=== PATIENT | male | born 1930 | race Caucasian/White ===

== ENCOUNTER 2017-01-26 16:33 | Emergency (ER) | payer OTHER ==
[~2017-01-26] VITALS: Ht 172.7 cm; Wt 77.1 kg
[~2017-01-26 16:33] MED LIST: LIP20 PO
[2017-01-26 16:51] VITALS: BP_SYST 133
--- NOTE | 2017-01-26 18:00 | NUR ---
Patient to ED bed 1, to await MD evaluation.
--- NOTE | 2017-01-26 18:00 | NUR ---
Patient to ED via triage with c/o left ear bleeding after inserting a Q-tip into his left ear. Patient denies any other known trauma or injury. Patient was able to ambulate to bed 1 with slow, steady gait. No c/o pain/sob upon exertion-patient without any other complaint at this time. Patient sitting quietly on gurney, awaiting evaluation by ER MD-will continue to observe and assess.
--- NOTE | 2017-01-26 18:15 | NUR ---
Dr Kelsey at bedside to evaluate patient.
[2017-01-26 18:45] VITALS: BP_SYST 130
--- NOTE | 2017-01-26 18:45 | NUR ---
Patient given written and verbal discharge instructions and verbalizes understanding. ER MD discussed with patient the results and treatment provided. Patient in stable condition. ID arm band removed. No RX given. Patient educated on pain management and to follow up with PMD. Pain Scale 0. Opportunity for questions provided and answered.
== END 2017-01-26 18:45 | disposition home or self-care (01) ==
LOC: SED 16:33
DX: H92.22 Otorrhagia, left ear (principal); E11.9 Type 2 diabetes mellitus without complications; Z86.79 Personal history of other diseases of the circulatory system; Z90.49 Acquired absence of other specified parts of digestive tract; Z95.1 Presence of aortocoronary bypass graft
CPT/HCPCS: 99282

== ENCOUNTER 2018-03-19 15:38 | Inpatient (IN) | payer OTHER ==
[~2018-03-19] VITALS: Ht 172.7 cm; Wt 89.4 kg
[2018-03-19 15:41] VITALS: BP_SYST 117
[2018-03-19] MEDS ORDERED: NACL 0.9% 1,000 ML IV ONE (15:46)
[2018-03-19] MEDS ORDERED: ONDANSETRON HCL 4 MG/2 ML VIAL IVP ONE (16:00)
[2018-03-19] MEDS ORDERED: ONDANSETRON HCL 4 MG/5 ML UDC PO ONE (16:00)
[2018-03-19] MEDS ORDERED: MORPHINE 4 MG/ML INJ. SYRINGE IVP ONE (16:00)
[2018-03-19 16:34] LABS: ANION GAP 15 (5-15); CALCIUM 9.7 mg/dL (8.4-11.0); CHLORIDE 101 mmol/L (98-107); CREATININE 2.15 mg/dL (0.55-1.30); GLUCOSE 98 mg/dL (70-99); POTASSIUM 4.5 mmol/L (3.5-5.1); SODIUM SERUM 135 mmol/L (136-145); UREA NITROGEN, BLOOD 38 mg/dL (8-21)
[2018-03-19 16:38] LABS: ALANINE AMINOTRANSFERASE 63 U/L (12-78); ALBUMIN 3.4 g/dL (3.4-4.8); ASPARTATE AMINOTRANSFERASE 106 U/L (10-37)
[2018-03-19 16:43] LABS: TOTAL BILIRUBIN 5.2 mg/dL (0.0-1.0)
[2018-03-19 16:45] LABS: BASOPHILS % (AUTO) 0.8 % (0.0-2.0); EOSINOPHILS % (AUTO) 0.1 % (0.0-4.0); HEMATOCRIT 51.1 % (36-54); HEMOGLOBIN 16.8 g/dL (14.0-18.0); LYMPHOCYTES % (AUTO) 11.4 % (20.5-51.5); MEAN CORPUSCULAR HEMOGLOBIN 29 pg (27-31); MEAN CORPUSCULAR HGB CONC 33 % (32-36); MEAN CORPUSCULAR VOLUME 89 fL (79.0-98.0); NEUTROPHILS % (AUTO) 79.7 % (40.0-70.0); PLATELET COUNT (AUTO) 170 K/uL (130-430); RED BLOOD CELL COUNT(AUTO) 5.72 MIL/uL (4.2-6.2); RED CELL DISTRIBUTION WIDTH 15.5 % (9.0-15.0)
[2018-03-19 16:49] LABS: LYMPHOCYTES # (AUTO) 0.9 K/uL (1.0-5.5); MONOCYTES # (AUTO) 0.6 K/uL (0.0-1.0); NEUTROPHILS # (AUTO) 6.3 K/uL (1.8-7.7)
[2018-03-19] MEDS ORDERED: ASPI-1155 PO (17:01)
[2018-03-19] MEDS ORDERED: LOSA100T3 PO (17:01)
[2018-03-19] MEDS ORDERED: APIX2.5T PO (17:01)
[2018-03-19] MEDS ORDERED: METO25TA3 PO (17:01)
[2018-03-19 17:56] VITALS: BP_SYST 130
[2018-03-19 20:00] VITALS: BP_SYST 119
[2018-03-19 22:30] VITALS: BP_SYST 98
[2018-03-20] MEDS ORDERED: ONDANSETRON HCL 4 MG/2 ML VIAL IVP PRN (00:15)
[2018-03-20] MEDS ORDERED: ACETAMINOPHEN 325 MG TABLET PO PRN ×2 (00:15→09:15)
[2018-03-20] MEDS ORDERED: ALBUTEROL SULFATE 0.083% 2.5 MG/3 ML VIAL.NEB INH PRN (00:15)
[2018-03-20 02:22] VITALS: BP_SYST 98
[2018-03-20] MEDS ORDERED: NACL 0.9% 1,000 ML IV SCH (05:45)
[2018-03-20 06:56] LABS: BASOPHILS # (AUTO) 0.1 K/uL (0.0-0.2); BASOPHILS % (AUTO) 0.6 % (0.0-2.0); EOSINOPHILS % (AUTO) 0.1 % (0.0-4.0); HEMATOCRIT 50.2 % (36-54); HEMOGLOBIN 16.3 g/dL (14.0-18.0); LYMPHOCYTES # (AUTO) 0.9 K/uL (1.0-5.5); LYMPHOCYTES % (AUTO) 7.8 % (20.5-51.5); MEAN CORPUSCULAR HEMOGLOBIN 29 pg (27-31); MEAN CORPUSCULAR HGB CONC 33 % (32-36); MEAN CORPUSCULAR VOLUME 90 fL (79.0-98.0); MONOCYTES # (AUTO) 1.1 K/uL (0.0-1.0); MONOCYTES % (AUTO) 9.8 % (1.7-9.3); PLATELET COUNT (AUTO) 166 K/uL (130-430); RED BLOOD CELL COUNT(AUTO) 5.58 MIL/uL (4.2-6.2); RED CELL DISTRIBUTION WIDTH 15.9 % (9.0-15.0); WHITE BLOOD COUNT (AUTO) 11.1 K/uL (4.8-10.8)
[2018-03-20 07:26] LABS: ALANINE AMINOTRANSFERASE 284 U/L (12-78); ALBUMIN 2.7 g/dL (3.4-4.8); ANION GAP 16 (5-15); CALCIUM 9.2 mg/dL (8.4-11.0); CHLORIDE 105 mmol/L (98-107); CREATININE 2.77 mg/dL (0.55-1.30); GLUCOSE 55 mg/dL (70-99); POTASSIUM 5.5 mmol/L (3.5-5.1); SODIUM SERUM 138 mmol/L (136-145); UREA NITROGEN, BLOOD 46 mg/dL (8-21)
[2018-03-20 07:44] LABS: ASPARTATE AMINOTRANSFERASE 725 U/L (10-37)
[2018-03-20 07:53] LABS: TOTAL BILIRUBIN 5.4 mg/dL (0.0-1.0)
[2018-03-20 08:00] VITALS: BP_SYST 106
[2018-03-20 08:39] LABS: INR 2.6 (0.80-1.20); PROTHROMBIN TIME 25.2 SECS (9.5-12.5)
[2018-03-20] MEDS: METOPROLOL SUCCINATE 25 MG TAB.SR.24H (TOPROL XL) PO SCH (08:54)
[2018-03-20] MEDS ORDERED: ATORVASTATIN 20 MG TABLET PO SCH (09:00)
[2018-03-20] MEDS ORDERED: PHYTONADIONE 5 MG TABLET PO ONE (09:15)
[2018-03-20] MEDS ORDERED: SODIUM POLYSTYRENE SULFONATE 15 GM/60 ML UDBTL PO ONE (09:15)
[2018-03-20] MEDS: NACL 0.9% 1,000 ML IV SCH ×2 (09:15→10:06)
[2018-03-20] MEDS ORDERED: IPRATROPIUM/ALBUTEROL SULFATE 3 ML AMPUL.NEB (DUONEB) INH PRN (09:15)
[2018-03-20] MEDS: cefTRIAXone 1 GM in D5W 50 ML IV SCH (10:17)
[2018-03-20 10:40] LABS: NEUTROPHILS % (AUTO) 81.7 % (40.0-70.0)
[2018-03-20 11:03] LABS: BILIRUBIN,URINE 2+ (NEGATIVE); BLOOD, URINE NEGATIVE (NEGATIVE); CLARITY/URINE HAZY (CLEAR); COLOR,URINE AMBER (YELLOW); GLUCOSE,URINE NEGATIVE (NEGATIVE); KETONES,URINE NEGATIVE (NEGATIVE); LEUKOCYTE ESTERASE ,URINE NEGATIVE (NEGATIVE); NITRITE, URINE NEGATIVE (NEGATIVE); PH,URINE 5.5 (5.0-8.0); PROTEIN URINE 2+ (NEGATIVE)
[2018-03-20 11:14] LABS: BACTERIA,URINE MODERATE /HPF (None Seen); MUCUS,URINE 1+ /LPF (None Seen); URINE AMORPHOUS URATE 2+ /HPF (None Seen)
[2018-03-20 12:00] VITALS: BP_SYST 102
[2018-03-20 16:00] VITALS: BP_SYST 100
[2018-03-20] MEDS: D5NS 1,000 ML IV SCH ×2 (17:09→20:15)
[2018-03-20 20:28] VITALS: BP_SYST 110
[2018-03-20] MEDS ORDERED: NYSTATIN 15 GM TOPICAL POWDER TP ONE (21:00)
[2018-03-20] MEDS: NYSTATIN 15 GM TOPICAL POWDER TP SCH (21:10)
[2018-03-21] MEDS: MORPHINE 4 MG/ML INJ. SYRINGE IVP PRN (02:08)
[2018-03-21 03:20] VITALS: BP_SYST 107
[2018-03-21] MEDS: D5NS 1,000 ML IV SCH ×2 (03:40→21:33)
[2018-03-21 07:19] LABS: INR 2.6 (0.80-1.20); PROTHROMBIN TIME 25.2 SECS (9.5-12.5)
[2018-03-21 07:40] LABS: TOTAL IRON BIND. CAPACITY 190 ug/dL (250-450)
[2018-03-21 07:50] LABS: ANION GAP 14 (5-15); CALCIUM 7.6 mg/dL (8.4-11.0); CHLORIDE 110 mmol/L (98-107); CREATININE 3.44 mg/dL (0.55-1.30); GLUCOSE 160 mg/dL (70-99); POTASSIUM 4.7 mmol/L (3.5-5.1); SODIUM SERUM 139 mmol/L (136-145); UREA NITROGEN, BLOOD 65 mg/dL (8-21)
[2018-03-21 07:55] LABS: ALANINE AMINOTRANSFERASE 403 U/L (12-78); ALBUMIN 2.2 g/dL (3.4-4.8); ASPARTATE AMINOTRANSFERASE 627 U/L (10-37); LACTATE DEHYDROGENASE 474 U/L (85-227); TOTAL BILIRUBIN 3.2 mg/dL (0.0-1.0)
[2018-03-21 07:58] LABS: ACETAMINOPHEN < 1 ug/mL (1-30)
[2018-03-21 08:16] VITALS: BP_SYST 113
[2018-03-21 08:17] LABS: BASOPHILS % (AUTO) 0.1 % (0.0-2.0); EOSINOPHILS % (AUTO) 0.1 % (0.0-4.0); HEMATOCRIT 48.3 % (36-54); HEMOGLOBIN 15.6 g/dL (14.0-18.0); LYMPHOCYTES # (AUTO) 0.7 K/uL (1.0-5.5); LYMPHOCYTES % (AUTO) 5.8 % (20.5-51.5); MEAN CORPUSCULAR HEMOGLOBIN 29 pg (27-31); MEAN CORPUSCULAR HGB CONC 32 % (32-36); MEAN CORPUSCULAR VOLUME 91 fL (79.0-98.0); MONOCYTES # (AUTO) 0.8 K/uL (0.0-1.0); MONOCYTES % (AUTO) 6.5 % (1.7-9.3); NEUTROPHILS # (AUTO) 10.2 K/uL (1.8-7.7); NEUTROPHILS % (AUTO) 87.5 % (40.0-70.0); RED BLOOD CELL COUNT(AUTO) 5.32 MIL/uL (4.2-6.2); RED CELL DISTRIBUTION WIDTH 15.8 % (9.0-15.0); WHITE BLOOD COUNT (AUTO) 11.7 K/uL (4.8-10.8)
[2018-03-21] MEDS ORDERED: AZITHROMYCIN 250 MG TABLET PO SCH (09:00)
[2018-03-21 09:32] LABS: PLATELET COUNT (AUTO) 171 K/uL (130-430)
[2018-03-21] MEDS: cefTRIAXone 1 GM in D5W 50 ML IV SCH (09:54)
[2018-03-21] MEDS ORDERED: PHYTONADIONE 5 MG TABLET PO ONE (10:15)
[2018-03-21] MEDS: METOPROLOL SUCCINATE 25 MG TAB.SR.24H (TOPROL XL) PO SCH (10:39)
[2018-03-21] MEDS: NYSTATIN 15 GM TOPICAL POWDER TP SCH ×2 (10:39→21:32)
[2018-03-21] MEDS: PANTOPRAZOLE SODIUM 40 MG TAB PO SCH (10:40)
[2018-03-21 12:00] VITALS: BP_SYST 110
[2018-03-21] MEDS ORDERED: FUROSEMIDE 100 MG in D5W 90 ML IV SCH (14:15)
[2018-03-21 16:00] VITALS: BP_SYST 118
[2018-03-21] MEDS: metroNIDAZOLE 500 mg/NS 100 ML IV SCH ×2 (16:16→21:32)
[2018-03-21 19:50] VITALS: BP_SYST 105
[2018-03-22 00:16] VITALS: BP_SYST 110
[2018-03-22] MEDS: metroNIDAZOLE 500 mg/NS 100 ML IV SCH ×3 (06:40→22:13)
[2018-03-22 07:13] LABS: BASOPHILS # (AUTO) 0.1 K/uL (0.0-0.2); BASOPHILS % (AUTO) 1.1 % (0.0-2.0); HEMATOCRIT 47.6 % (36-54); HEMOGLOBIN 15.6 g/dL (14.0-18.0); LYMPHOCYTES # (AUTO) 0.7 K/uL (1.0-5.5); LYMPHOCYTES % (AUTO) 5.5 % (20.5-51.5); MEAN CORPUSCULAR HEMOGLOBIN 29 pg (27-31); MEAN CORPUSCULAR HGB CONC 33 % (32-36); MEAN CORPUSCULAR VOLUME 90 fL (79.0-98.0); MONOCYTES # (AUTO) 1.1 K/uL (0.0-1.0); MONOCYTES % (AUTO) 9.3 % (1.7-9.3); NEUTROPHILS # (AUTO) 10.1 K/uL (1.8-7.7); PLATELET COUNT (AUTO) 140 K/uL (130-430); RED CELL DISTRIBUTION WIDTH 15.6 % (9.0-15.0)
[2018-03-22 07:32] LABS: PROTHROMBIN TIME 19.4 SECS (9.5-12.5)
[2018-03-22 07:35] LABS: ALBUMIN 2.9 g/dL (3.4-4.8); AMYLASE 160 U/L (0-100); CALCIUM 8.1 mg/dL (8.4-11.0); CHLORIDE 108 mmol/L (98-107); LIPASE 1105 U/L (73-393); POTASSIUM 5.5 mmol/L (3.5-5.1); UREA NITROGEN, BLOOD 77 mg/dL (8-21)
[2018-03-22 07:56] LABS: ANION GAP 13 (5-15); ASPARTATE AMINOTRANSFERASE 630 U/L (10-37); CREATININE 4.22 mg/dL (0.55-1.30); GLUCOSE 110 mg/dL (70-99); SODIUM SERUM 139 mmol/L (136-145); TOTAL BILIRUBIN 3.3 mg/dL (0.0-1.0)
[2018-03-22 07:57] LABS: ALANINE AMINOTRANSFERASE 482 U/L (12-78)
[2018-03-22 08:00] VITALS: BP_SYST 117
[2018-03-22] MEDS: METOPROLOL SUCCINATE 25 MG TAB.SR.24H (TOPROL XL) PO SCH (09:13)
[2018-03-22] MEDS: PANTOPRAZOLE SODIUM 40 MG TAB PO SCH (09:13)
[2018-03-22] MEDS: cefTRIAXone 1 GM in D5W 50 ML IV SCH (09:15)
[2018-03-22] MEDS: NYSTATIN 15 GM TOPICAL POWDER TP SCH ×2 (09:15→22:13)
[2018-03-22 12:08] LABS: NEUTROPHILS % (AUTO) 84.1 % (40.0-70.0)
[2018-03-22 12:37] VITALS: BP_SYST 126
[2018-03-22] MEDS ORDERED: SODIUM POLYSTYRENE SULFONATE 15 GM/60 ML UDBTL PO ONE (14:00)
[2018-03-22 16:02] VITALS: BP_SYST 114
[2018-03-22] MEDS: FUROSEMIDE 100 MG in D5W 90 ML IV SCH (17:11)
[2018-03-22] MEDS: MORPHINE 4 MG/ML INJ. SYRINGE IVP PRN (17:43)
[2018-03-22 19:47] VITALS: BP_SYST 115
[2018-03-22] MEDS: D5NS 1,000 ML IV SCH (22:14)
[2018-03-22 22:20] LABS: HEPATITIS A AB, IgM Negative (Negative); HEPATITIS B CORE AB, IgM Negative (Negative); HEPATITIS B SURFACE AG Negative (Negative)
[2018-03-23 02:08] LABS: FERRITIN 117 ng/mL (30-400)
[2018-03-23 03:09] LABS: AFP, TUMOR MARKER 1.4 ng/mL (0.0-8.3)
[2018-03-23 03:09] LABS: PROSTATE SPECIFIC AG TOTAL 0.6 ng/mL (0.0-4.0)
[2018-03-23 04:06] LABS: % FREE PSA 11.7 % (.); FREE PSA 0.07 ng/mL
[2018-03-23] MEDS: metroNIDAZOLE 500 mg/NS 100 ML IV SCH ×2 (06:08→14:08)
[2018-03-23] MEDS: FUROSEMIDE 100 MG in D5W 90 ML IV SCH (06:09)
[2018-03-23 06:30] VITALS: BP_SYST 109
[2018-03-23 07:41] LABS: BASOPHILS % (AUTO) 0.3 % (0.0-2.0); EOSINOPHILS % (AUTO) 0.3 % (0.0-4.0); HEMATOCRIT 46.2 % (36-54); HEMOGLOBIN 14.5 g/dL (14.0-18.0); LYMPHOCYTES # (AUTO) 0.7 K/uL (1.0-5.5); LYMPHOCYTES % (AUTO) 7.4 % (20.5-51.5); MEAN CORPUSCULAR HEMOGLOBIN 28 pg (27-31); MEAN CORPUSCULAR HGB CONC 32 % (32-36); MEAN CORPUSCULAR VOLUME 90 fL (79.0-98.0); MONOCYTES # (AUTO) 0.7 K/uL (0.0-1.0); MONOCYTES % (AUTO) 7.6 % (1.7-9.3); NEUTROPHILS # (AUTO) 7.5 K/uL (1.8-7.7); PLATELET COUNT (AUTO) 119 K/uL (130-430); RED BLOOD CELL COUNT(AUTO) 5.12 MIL/uL (4.2-6.2); RED CELL DISTRIBUTION WIDTH 15.6 % (9.0-15.0); WHITE BLOOD COUNT (AUTO) 8.9 K/uL (4.8-10.8)
[2018-03-23 07:48] LABS: ANION GAP 13 (5-15); CALCIUM 7.6 mg/dL (8.4-11.0); CHLORIDE 110 mmol/L (98-107); CREATININE 4.66 mg/dL (0.55-1.30); GLUCOSE 116 mg/dL (70-99); POTASSIUM 4.4 mmol/L (3.5-5.1); SODIUM SERUM 144 mmol/L (136-145); UREA NITROGEN, BLOOD 88 mg/dL (8-21)
[2018-03-23 07:59] LABS: ALANINE AMINOTRANSFERASE 363 U/L (12-78); ALBUMIN 2.6 g/dL (3.4-4.8); ASPARTATE AMINOTRANSFERASE 344 U/L (10-37); LIPASE 355 U/L (73-393); TOTAL BILIRUBIN 2.2 mg/dL (0.0-1.0)
[2018-03-23 08:00] VITALS: BP_SYST 135
[2018-03-23] MEDS: cefTRIAXone 1 GM in D5W 50 ML IV SCH (09:37)
[2018-03-23] MEDS: PANTOPRAZOLE SODIUM 40 MG TAB PO SCH (09:37)
[2018-03-23] MEDS: METOPROLOL SUCCINATE 25 MG TAB.SR.24H (TOPROL XL) PO SCH (09:37)
[2018-03-23] MEDS: NYSTATIN 15 GM TOPICAL POWDER TP SCH (09:38)
[2018-03-23 11:00] LABS: NEUTROPHILS % (AUTO) 84.4 % (40.0-70.0)
[2018-03-23 12:34] VITALS: BP_SYST 117
[2018-03-23 14:05] VITALS: BP_SYST 117
[2018-03-23 15:13] LABS: ANTI-SMOOTH MUSCLE AB 25 Units (0-19)
[2018-03-23 15:31] VITALS: BP_SYST 135
== END 2018-03-23 16:00 | disposition hospice, home (50) | DRG 682 ==
LOC: SED 15:38 → SMU 17:13 → STU 03-21 10:38
PROVIDERS: ADMIT Internal Medicine; ATTEND Internal Medicine
PROC: 30233L1 Transfusion of Nonautologous Fresh Plasma into Peripheral Vein, Percutaneous Approach (ICD-10-PCS; principal; 2018-03-21)
PROC: 30233K1 Transfusion of Nonautologous Frozen Plasma into Peripheral Vein, Percutaneous Approach (ICD-10-PCS; 2018-03-21)
DX: N17.9 Acute kidney failure, unspecified (principal); S72.145A Nondisplaced intertrochanteric fracture of left femur, initial encounter for closed fracture; J18.9 Pneumonia, unspecified organism; I13.0 Hypertensive heart and chronic kidney disease with heart failure and stage 1 through stage 4 chronic kidney disease, or unspecified chronic kidney disease; D68.9 Coagulation defect, unspecified; I48.2 Chronic atrial fibrillation; E11.22 Type 2 diabetes mellitus with diabetic chronic kidney disease; E66.9 Obesity, unspecified; F03.90 Unspecified dementia, unspecified severity, without behavioral disturbance, psychotic disturbance, mood disturbance, and anxiety; I25.10 Atherosclerotic heart disease of native coronary artery without angina pectoris; I25.5 Ischemic cardiomyopathy; I50.9 Heart failure, unspecified; N18.9 Chronic kidney disease, unspecified; Z51.5 Encounter for palliative care; E78.5 Hyperlipidemia, unspecified; W01.0XXA Fall on same level from slipping, tripping and stumbling without subsequent striking against object, initial encounter; Z60.2 Problems related to living alone; R74.0 Nonspecific elevation of levels of transaminase and lactic acid dehydrogenase [LDH]; E86.0 Dehydration; Z87.891 Personal history of nicotine dependence; Z95.1 Presence of aortocoronary bypass graft; Y93.89 Activity, other specified; Y92.091 Bathroom in other non-institutional residence as the place of occurrence of the external cause; I25.2 Old myocardial infarction; Z79.01 Long term (current) use of anticoagulants; Y99.8 Other external cause status; Z79.899 Other long term (current) drug therapy; Z90.49 Acquired absence of other specified parts of digestive tract; Z79.82 Long term (current) use of aspirin; Z68.30 Body mass index [BMI] 30.0-30.9, adult
CPT/HCPCS: 36415; 36600; 71045; 73502; 76700-TC; 80048; 80053; 80074; 81000-TC; 82105; 82140-TC; 82150-TC; 82550-TC; 82728; 82803-TC; 82977-TC; 83516; 83540-TC; 83550-TC; 83615-TC; 83690-TC; 85025; 85610-TC; 85730-TC; 86886; 86900; 86901; 87081; 93005; 93306; 94640; 94760; 96361; 96374; 96375; 99285; G0103; G0378; G0480; J0696; J1940; J2270; J2405; J3490; J7030; J7042; J7050; J7060; J7613; J7620; P9059